=== PATIENT | female | born 1940 | race Caucasian/White ===

== ENCOUNTER → 2017-05-08 | Outpatient (CLI) | payer OTHER | END | disposition home or self-care (01) | LOC: CFH 11:13 | PROVIDERS: ATTEND Specialist | DX: Z12.31 Encounter for screening mammogram for malignant neoplasm of breast (principal); Z90.12 Acquired absence of left breast and nipple; Z85.3 Personal history of malignant neoplasm of breast | CPT/HCPCS: 77067 ==

== ENCOUNTER → 2017-12-18 | Outpatient (CLI) | payer OTHER | END | disposition home or self-care (01) | LOC: CVU 06:52 | PROVIDERS: ATTEND Surgery | DX: I83.812 Varicose veins of left lower extremity with pain (principal) | CPT/HCPCS: 93971 ==

== ENCOUNTER → 2018-02-21 | Outpatient (CLI) | payer MEDICARE, OTHER ==
[~2018-02-21] MED LIST: CHOL200024 PO; Cinsulin PO; FOCUS SELECT PO; GABA800T2 PO; MULT-717 PO; VITA1TAB19 PO
[2018-02-21 15:12] LABS: BASOPHILS # (AUTO) 0.04 x10^3/uL (0-0.1); BASOPHILS % (AUTO) 1 % (0-1); EOSINOPHILS # (AUTO) 0.14 x10^3/uL (0-0.4); EOSINOPHILS % (AUTO) 2 % (1-7); LYMPHOCYTES # (AUTO) 1.41 x10^3/uL (1-3.4); LYMPHOCYTES % (AUTO) 24 % (22-44); MD NO; MEAN CORPUSCULAR HEMOGLOBIN 29.9 pg (27.0-34.8); MEAN CORPUSCULAR HGB CONC 32.8 g/dL (32.4-35.8); MEAN CORPUSCULAR VOLUME 91.2 fL (80-100); MEAN PLATELET VOLUME 8.6 fL (7.4-10.4); MONOCYTES # (AUTO) 0.43 x10^3/uL (0.2-0.8); MONOCYTES % (AUTO) 7 % (2-9); NEUTROPHILS % (AUTO) 66 % (42-75); PLATELET COUNT 272 x10^3/uL (130-400); RED CELL DISTRIBUTION WIDTH 14.2 % (9.6-15.2)
[2018-02-21 15:23] LABS: ANION GAP 6 mmol/L (5-15); CHLORIDE 107 mmol/L (98-107); CREATININE 0.69 mg/dL (0.55-1.02)
== END | disposition home or self-care (01) ==
LOC: STAR 13:49
PROVIDERS: ATTEND Surgery
DX: Z01.818 Encounter for other preprocedural examination (principal); I83.92 Asymptomatic varicose veins of left lower extremity; Z88.8 Allergy status to other drugs, medicaments and biological substances
CPT/HCPCS: 36415; 80048; 85025; 93005

== ENCOUNTER 2018-02-26 13:39 | Day surgery (SDC) | payer MEDICARE, OTHER ==
[2018-02-21 14:33] VITALS: BP 153/88
[~2018-02-26] VITALS: Ht 160 cm; Wt 65.9 kg
[~2018-02-26 13:39] MED LIST changes: +SUGAMMADEX 200 MG/2 ML IVPush ONE
[2018-02-26] MEDS ORDERED: LACTATED RINGERS 1,000 ML IV SCH ×2 (14:25→21:00)
[2018-02-26] MEDS ORDERED: CEFAZOLIN 0 MG in SODIUM CHLORIDE 0.9% 50 ML IV SCH (14:30)
[2018-02-26] MEDS ORDERED: CEFAZOLIN PMX 2GM/50ML 50 ML IVPB ONE (15:00)
[2018-02-26] MEDS ORDERED: PROPOFOL 10 MG/ML, 20ML ONE (15:15)
[2018-02-26] MEDS ORDERED: CEFAZOLIN 1,000 MG ONE (16:24)
[2018-02-26] MEDS ORDERED: HEPARIN 1,000 UNITS/ML, 10ML ONE (16:26)
[2018-02-26] MEDS ORDERED: LIDOCAINE 1%-EPI 1:100K, 30ML ONE ×2 (16:26→16:33)
[2018-02-26] MEDS ORDERED: HYDROcodone/APAP 7.5-325MG/15ML UDC PO PRN (16:30)
[2018-02-26] MEDS ORDERED: MEPERIDINE/PF 25MG/0.5ML IVPush PRN (16:30)
[2018-02-26] MEDS ORDERED: MORPHINE SULFATE 4 MG/ML, 1ML IVPush PRN ×2 (16:30→21:00)
[2018-02-26] MEDS ORDERED: OXYcodone 5 MG/5 ML ORAL.SOL UDC PO PRN (16:30)
[2018-02-26] MEDS ORDERED: FENTANYL PF 100 MCG/2ML ONE ×2 (16:40→18:01)
[2018-02-26] MEDS ORDERED: ONDANSETRON 2MG/ML, 2ML ONE ×2 (16:46→18:32)
[2018-02-26] MEDS ORDERED: DEXAMETHASONE 4 MG/ML, 1ML ONE (16:46)
[2018-02-26] MEDS ORDERED: PROPOFOL 10 MG/ML, 50ML ONE (16:46)
[2018-02-26] MEDS ORDERED: OXYcodone 5 MG/5 ML ORAL.SOL UDC ONE (18:01)
[2018-02-26] MEDS: FENTANYL PF 100 MCG/2ML IV PRN ×2 (18:02→18:25)
[2018-02-26] MEDS ORDERED: ONDANSETRON 2MG/ML, 2ML IV PRN (18:30)
[2018-02-26] MEDS ORDERED: PROMETHAZINE 25 MG/ML, 1ML ONE (18:39)
[2018-02-26] MEDS: PROMETHAZINE 25 MG/ML, 1ML IV PRN ×2 (18:40→19:04)
[2018-02-26] MEDS ORDERED: ONDANSETRON 2MG/ML, 2ML IVPush PRN (21:00)
[2018-02-26] MEDS ORDERED: GABAPENTIN 400 MG CAPSULE PO SCH (21:00)
[2018-02-26] MEDS ORDERED: HYDROcodone/APAP 5/325 TABLET PO PRN (21:00)
[2018-02-26] MEDS ORDERED: DIPHENHYDRAMINE 50 MG/ML, 1ML IVPush PRN (21:00)
[2018-02-27] MEDS ORDERED: MULTIVITAMINS/MINERALS TABLET PO SCH (09:00)
[2018-02-27] MEDS ORDERED: CHOLECALCIFEROL 5,000u TAB PO SCH (09:00)
[2018-02-27] MEDS ORDERED: MULTIVITS,STRESS FORMULA 1 TABLET PO SCH (09:00)
== END 2018-02-26 22:34 | disposition home or self-care (01) ==
LOC: OR 13:39 → 4NOR 20:25 → OR 22:34
PROVIDERS: ATTEND Surgery
DX: I83.812 Varicose veins of left lower extremity with pain (principal); I87.8 Other specified disorders of veins; E78.5 Hyperlipidemia, unspecified; I10 Essential (primary) hypertension; Z88.1 Allergy status to other antibiotic agents; Z88.8 Allergy status to other drugs, medicaments and biological substances; Z85.3 Personal history of malignant neoplasm of breast
CPT/HCPCS: 36475; 37765; C1888; J0690; J1100; J1644; J2405; J2550; J2704; J3010; J3490; J7120; G0378

== ENCOUNTER → 2018-03-01 | Outpatient (CLI) | payer MEDICARE ==
[~2018-03-01] MED LIST changes: -GABA800T2 PO; +GABA800T5 PO; -SUGAMMADEX 200 MG/2 ML IVPush ONE
== END | disposition home or self-care (01) ==
LOC: CVU 14:12
PROVIDERS: ATTEND Surgery
DX: I83.812 Varicose veins of left lower extremity with pain (principal); I87.2 Venous insufficiency (chronic) (peripheral)
CPT/HCPCS: 93971

== ENCOUNTER → 2018-05-15 | Outpatient (CLI) | payer MEDICARE | END | disposition home or self-care (01) | LOC: CFH 09:33 | PROVIDERS: ATTEND Specialist | DX: Z12.31 Encounter for screening mammogram for malignant neoplasm of breast (principal); Z85.3 Personal history of malignant neoplasm of breast; Z98.82 Breast implant status | CPT/HCPCS: 77063; 77067 ==

== ENCOUNTER → 2019-06-28 | Outpatient (CLI) | payer MEDICARE | END | disposition home or self-care (01) | LOC: CFH 10:20 | PROVIDERS: ATTEND Specialist | DX: Z12.31 Encounter for screening mammogram for malignant neoplasm of breast (principal) | CPT/HCPCS: 77063; 77067 ==

== ENCOUNTER → 2019-08-29 | Outpatient (CLI) | payer MEDICARE | END | disposition home or self-care (01) | LOC: CFH 08:20 | PROVIDERS: ATTEND Family Medicine | DX: M85.88 Other specified disorders of bone density and structure, other site (principal); N95.8 Other specified menopausal and perimenopausal disorders | CPT/HCPCS: 77080 ==

== ENCOUNTER → 2019-10-23 | Outpatient (CLI) | payer MEDICARE | END | disposition home or self-care (01) | LOC: CVU 07:08 | PROVIDERS: ATTEND Family Medicine | DX: I83.91 Asymptomatic varicose veins of right lower extremity (principal) | CPT/HCPCS: 93971 ==

== ENCOUNTER → 2019-11-22 | Outpatient (CLI) | payer MEDICARE ==
[~2019-11-22] MED LIST changes: +ALPHA LIPOIC ACID PO; +HYDR-3240 PO
[2019-11-22 10:33] LABS: ANION GAP 5 mmol/L (5-15); CALCIUM 9.4 mg/dL (8.5-10.1); CHLORIDE 111 mmol/L (98-107); CREATININE 0.77 mg/dL (0.55-1.02)
[2019-11-22 10:34] LABS: BASOPHILS % (AUTO) 1 % (0-1); EOSINOPHILS % (AUTO) 4 % (1-7); LYMPHOCYTES % (AUTO) 20 % (22-44); MEAN CORPUSCULAR HEMOGLOBIN 31.1 pg (27.0-34.8); MEAN CORPUSCULAR HGB CONC 33.1 g/dL (32.4-35.8); MEAN PLATELET VOLUME 8.8 fL (7.4-10.4); MONOCYTES % (AUTO) 9 % (2-9); NEUTROPHILS % (AUTO) 66 % (42-75); PLATELET COUNT 270 x10^3/uL (130-400); RED BLOOD COUNT 4.51 x10^6/uL (3.82-5.3); RED CELL DISTRIBUTION WIDTH 13.7 % (9.6-15.2)
[2019-11-22 10:35] LABS: MD NO
== END | disposition home or self-care (01) ==
LOC: STAR 08:07
PROVIDERS: ATTEND Surgery
DX: Z01.812 Encounter for preprocedural laboratory examination (principal); Z20.828 Contact with and (suspected) exposure to other viral communicable diseases; I83.91 Asymptomatic varicose veins of right lower extremity; M79.89 Other specified soft tissue disorders
CPT/HCPCS: 36415; 80048; 85025; 87635; 93005

== ENCOUNTER 2019-11-27 15:08 | Day surgery (SDC) | payer MEDICARE ==
[~2019-11-27] VITALS: Ht 160 cm; Wt 65.5 kg
[~2019-11-27 15:08] MED LIST changes: +HEPARIN 1,000 UNITS/ML, 10ML ONE; -HYDR-3240 PO; +LIDOCAINE/PF 1%, 30ML ONE
[2019-11-27] MEDS ORDERED: LACTATED RINGERS 1,000 ML IV SCH (16:00)
[2019-11-27] MEDS ORDERED: CHLORHEXIDINE 15 ML UDC MM ONE (16:00)
[2019-11-27] MEDS ORDERED: EPINEPHRINE 1 MG/ML, 1ML ONE (18:57)
[2019-11-27] MEDS ORDERED: LIDOCAINE/PF 1%, 30ML ONE (18:57)
[2019-11-27] MEDS ORDERED: MEPERIDINE/PF 25MG/0.5ML IVPush PRN (19:00)
[2019-11-27] MEDS ORDERED: HYDROmorphone 1 MG/ML, 1ML INJ IVPush PRN (19:00)
[2019-11-27] MEDS ORDERED: PROMETHAZINE 25 MG/ML, 1ML IVPush PRN (19:00)
[2019-11-27] MEDS ORDERED: HYDROcodone/APAP 7.5-325MG/15ML UDC PO PRN (19:00)
[2019-11-27] MEDS ORDERED: FENTANYL PF 100 MCG/2ML IV PRN (19:00)
[2019-11-27] MEDS ORDERED: OXYcodone 5 MG/5 ML ORAL.SOL UDC PO PRN (19:00)
[2019-11-27] MEDS ORDERED: FENTANYL PF 100 MCG/2ML ONE ×2 (19:14→20:59)
[2019-11-27] MEDS ORDERED: PROPOFOL 10 MG/ML, 20ML ONE (19:36)
[2019-11-27] MEDS ORDERED: CEFAZOLIN 1,000 MG ONE (19:36)
[2019-11-27] MEDS ORDERED: EPHEDRINE 50 MG/ML, 1ML ONE (19:36)
[2019-11-27] MEDS ORDERED: HYDROcodone/APAP 7.5-325MG/15ML UDC ONE (20:57)
[2019-11-27] MEDS ORDERED: ONDANSETRON 2MG/ML, 2ML ONE (21:48)
[2019-11-27] MEDS: ONDANSETRON 2MG/ML, 2ML IVPush PRN ×2 (21:51→23:45)
[2019-11-27 22:28] VITALS: BP 140/67
[2019-11-27] MEDS ORDERED: HYDR-3240 PO (22:31)
== END 2019-11-27 23:52 | disposition home or self-care (01) ==
LOC: OR 15:08 → 4NE 22:26 → OR 23:52
PROVIDERS: ATTEND Surgery
DX: I83.813 Varicose veins of bilateral lower extremities with pain (principal); I83.891 Varicose veins of right lower extremity with other complications; E78.5 Hyperlipidemia, unspecified; G50.0 Trigeminal neuralgia; Z79.899 Other long term (current) drug therapy; Z88.5 Allergy status to narcotic agent; Z88.8 Allergy status to other drugs, medicaments and biological substances; Z98.890 Other specified postprocedural states
CPT/HCPCS: 36475; C1888; J0171; J0690; J1644; J2405; J2704; J3010; J7120; G0378

== ENCOUNTER → 2020-01-13 | Outpatient (CLI) | payer MEDICARE ==
[~2020-01-13] MED LIST changes: -HEPARIN 1,000 UNITS/ML, 10ML ONE; +HYDR-3240 PO; -LIDOCAINE/PF 1%, 30ML ONE
== END | disposition home or self-care (01) ==
LOC: CVU 07:43
PROVIDERS: ATTEND Surgery
DX: I83.811 Varicose veins of right lower extremity with pain (principal)
CPT/HCPCS: 93971

== ENCOUNTER → 2020-06-29 | Outpatient (CLI) | payer BC ==
[~2020-06-29] MED LIST changes: +HYDR-2214 PO; -HYDR-3240 PO
== END | disposition home or self-care (01) ==
LOC: CFH 08:14
PROVIDERS: ATTEND Specialist
DX: Z12.31 Encounter for screening mammogram for malignant neoplasm of breast (principal); R92.1 Mammographic calcification found on diagnostic imaging of breast
CPT/HCPCS: 77063; 77067